=== PATIENT | male | born 2000 | race Caucasian/White ===

== ENCOUNTER 2023-01-29 20:26 | Emergency (ER) | payer OTHER ==
[~2023-01-29 20:26] MED LIST: Iopamidol 370 76% 100 ML VIAL ONE
[2023-01-29 20:59] LABS: #Basophils 0.1 10x3/uL (0.0-0.2); #Eosinphils 0.2 10x3/uL (0.0-0.5); #Monocytes 0.5 10x3/uL (0.0-1.1); #Neutrophils 4.8 10x3/uL (1.5-8.4); %Basophils 0.7 % (0.0-2.0); %Eosinophils 2.6 % (0.0-6.0); %Lymphocytes 30.2 % (18.0-47.0); %Neutrophils 60.4 % (40.0-75.0); Hemoglobin 16.9 g/dL (13.5-17.5); Mean Corpuscular HGB CONC 35.2 g/dL (32.0-36.0); Mean Corpuscular Hemoglobin 29.8 pg (27.0-33.0); Mean Corpuscular Volume 84.7 fl (81.2-95.1); Mean Platelet Volume 9.3 fl (7.4-10.4); Platelet Count 238 10x3/uL (150-450); RBC Distribution Width 12.2 % (11.5-14.5); Red Blood Cell (RBC) Count 5.67 10x6/uL (4.32-5.72)
[2023-01-29 21:05] LABS: Lactic Acid 0.8 mmol/L (0.5-2.2)
[2023-01-29 21:11] LABS: ALT (SGPT) 37 U/L (8-55); AST (SGOT) 30 U/L (5-34); Albumin 5.1 g/dL (3.5-5.0); Alkaline Phosphatase 96 U/L (50-130); Anion Gap 14 mmol/L (10-20); BUN (Urea Nitrogen) 15 mg/dL (8.9-20.6); Bilirubin, Total 0.8 mg/dL (0.2-1.2); Calc. Creatinine Clearance 0 mL/min (70-130); Calcium 9.9 mg/dL (7.8-10.44); Carbon Dioxide 26 mmol/L (22-29); Chloride 103 mmol/L (98-107); Estimated GFR 85; Globulin 2.9 g/dL (2.4-3.5); Glucose 90 mg/dL (70-105); INR-International Normal Ratio 1.1; PTT 26.8 sec (22.0-33.0); Potassium 4.1 mmol/L (3.5-5.1); Prothrombin Time 11.8 sec (9.5-12.1); Sodium 139 mmol/L (136-145)
[2023-01-29] MEDS ORDERED: Ketorolac Tromethamine 30 MG/ML VIAL ONE (22:28)
== END 2023-01-29 22:30 | disposition home or self-care (01) ==
LOC: CSHERS 20:26
DX: S83.91XA Sprain of unspecified site of right knee, initial encounter (principal); S09.90XA Unspecified injury of head, initial encounter; V89.2XXA Person injured in unspecified motor-vehicle accident, traffic, initial encounter
CPT/HCPCS: 70450; 71045; 71260; 72125; 74177; 80053; 83605; 85025; 85610; 85730; J1885

== ENCOUNTER 2023-12-25 04:00 | Inpatient (IN) | payer OTHER ==
[2023-12-25] MEDS ORDERED: methylPREDNISolone Sod Succ/PF 125 MG/2 ML VIAL ONE (04:10)
[2023-12-25] MEDS ORDERED: EPINEPHrine 1 MG/ML VIAL ONE ×3 (04:10→05:30)
[2023-12-25] MEDS ORDERED: diphenhydrAMINE 50 MG/ML VIAL ONE ×2 (04:17→05:20)
[2023-12-25] MEDS ORDERED: Ondansetron PF 4 MG/2 ML Vial ONE (04:47)
[2023-12-25] MEDS ORDERED: Albuterol 1.25 MG (3 mL) NEB ONE (05:30)
[2023-12-25] MEDS ORDERED: Albuterol 2.5 MG (3 mL) NEB ONE (05:31)
[2023-12-25] MEDS ORDERED: Famotidine/PF 20 mg/2ml Vial ONE (05:37)
[2023-12-25] MEDS ORDERED: Albuterol 2.5 MG (3 mL) NEB NEB PRN (06:11)
[2023-12-25] MEDS ORDERED: Ondansetron PF 4 MG/2 ML Vial IVP PRN (06:11)
[2023-12-25] MEDS ORDERED: EPINEPHrine 4 MG in Dextrose 5% in Water 250 ML IV SCH (06:15)
[2023-12-25 06:32] LABS: Anion Gap 15 mmol/L (10-20); BUN (Urea Nitrogen) 17 mg/dL (8.9-20.6); Calc. Creatinine Clearance 0 mL/min (70-130); Calcium 8.9 mg/dL (7.8-10.44); Carbon Dioxide 23 mmol/L (22-29); Chloride 104 mmol/L (98-107); Estimated GFR 87; Glucose 201 mg/dL (70-105); Sodium 139 mmol/L (136-145)
[2023-12-25 06:36] LABS: #Basophils 0.1 10x3/uL (0.0-0.2); #Eosinphils 0.4 10x3/uL (0.0-0.5); #Monocytes 0.4 10x3/uL (0.0-1.1); #Neutrophils 8.5 10x3/uL (1.5-8.4); %Basophils 0.5 % (0.0-2.0); %Eosinophils 2.4 % (0.0-6.0); %Lymphocytes 36.5 % (18.0-47.0); %Monocytes 2.6 % (0.0-10.0); %Neutrophils 57.6 % (40.0-75.0); Hematocrit 43.6 % (38.8-50.0); Hemoglobin 15.6 g/dL (13.5-17.5); Mean Corpuscular HGB CONC 35.8 g/dL (32.0-36.0); Mean Corpuscular Hemoglobin 31.5 pg (27.0-33.0); Mean Corpuscular Volume 87.9 fl (81.2-95.1); Mean Platelet Volume 10.2 fl (7.4-10.4); Platelet Count 289 10x3/uL (150-450); RBC Distribution Width 11.9 % (11.5-14.5); Red Blood Cell (RBC) Count 4.96 10x6/uL (4.32-5.72); White Blood Cell (WBC) Count 14.8 10x3/uL (3.5-10.5)
[2023-12-25 06:51] VITALS: BMI 29.2
[2023-12-25] MEDS: Lactated Ringer's 1,000 ML IV SCH ×2 (07:30→14:31)
[2023-12-25] MEDS: Enoxaparin 40 MG (0.4 mL) SYRINGE SC SCH ×2 (07:38→08:39)
[2023-12-25] MEDS ORDERED: Potassium Chloride 20 MEQ TAB PO SCH (08:00)
[2023-12-25] MEDS: Famotidine/PF 20 mg/2ml Vial SLOW IVP SCH ×2 (08:39→20:08)
[2023-12-25] MEDS: methylPREDNISolone Sod Succ 40 MG VIAL IVP SCH ×3 (13:29→23:24)
[2023-12-25] MEDS: diphenhydrAMINE 50 MG/ML VIAL IVP SCH ×3 (13:29→23:24)
[2023-12-26] MEDS: diphenhydrAMINE 50 MG/ML VIAL IVP SCH ×2 (05:20→10:36)
[2023-12-26] MEDS: methylPREDNISolone Sod Succ 40 MG VIAL IVP SCH ×2 (05:20→10:36)
[2023-12-26] MEDS: Famotidine/PF 20 mg/2ml Vial SLOW IVP SCH (07:37)
[2023-12-26] MEDS: Enoxaparin 40 MG (0.4 mL) SYRINGE SC SCH (07:38)
[2023-12-26 09:22] VITALS: BP 124/45; TEMP 98.1
== END 2023-12-26 10:45 | disposition home or self-care (01) | DRG 916 ==
LOC: CSHERS 04:00 → CSHIMCU 05:38
PROVIDERS: ADMIT Family Medicine; ATTEND Internal Medicine
PROC: 3E033XZ Introduction of Vasopressor into Peripheral Vein, Percutaneous Approach (ICD-10-PCS; principal; 2023-12-25)
DX: T78.01XA Anaphylactic reaction due to peanuts, initial encounter (principal); J45.20 Mild intermittent asthma, uncomplicated; Z91.010 Allergy to peanuts; Z79.51 Long term (current) use of inhaled steroids; Z90.89 Acquired absence of other organs; Z82.49 Family history of ischemic heart disease and other diseases of the circulatory system
CPT/HCPCS: 80048; 83735; 85025; J0171; J1200; J1650; J2405; J2920; J2930; J7120; J7611; S0028